=== PATIENT | female | born 1960 | race Caucasian/White ===

== ENCOUNTER → 2022-08-30 | Day surgery (SDC) | payer BC ==
[~2022-08-30] MED LIST: Lactated Ringers 1,000 ML IV SCH; Propofol 200 MG/20 ML SDV ONE
== END ==
LOC: CC.SDS 09:52
PROVIDERS: ATTEND Family Medicine
DX: Z12.11 Encounter for screening for malignant neoplasm of colon (principal); E78.5 Hyperlipidemia, unspecified; J30.9 Allergic rhinitis, unspecified; Z79.899 Other long term (current) drug therapy; Z98.890 Other specified postprocedural states
CPT/HCPCS: 45378; J2704; J7120